=== PATIENT | male | born 2000 | race Two or more races ===

== ENCOUNTER 2024-01-01 15:20 | Emergency (ER) | payer SELFPAY ==
[~2024-01-01] VITALS: Ht 172.7 cm; Wt 68.0 kg
[2024-01-01 15:24] VITALS: O2SAT 97
[2024-01-01] MEDS ORDERED: LACTATED RINGERS 1,000 ML IV SCH (15:45)
[2024-01-01 16:05] LABS: CARBON DIOXIDE 28 mEq/L (21-32); CHLORIDE 104 mEq/L (98-107); POTASSIUM 3.8 mEq/L (3.5-5.1); SODIUM 142 mEq/L (136-145)
[2024-01-01 16:06] LABS: CALCIUM 9.2 mg/dL (8.7-10.4)
[2024-01-01 16:10] LABS: BASOPHILS % 0.5 % (0.0-2.0); EOSINOPHILS % 1.6 % (0.0-5.0); HEMATOCRIT. 40.9 % (42.0-52.0); HEMOGLOBIN. 13.9 g/dL (14.0-18.0); LYMPHOCYTES % 30.4 % (20.0-50.0); MEAN CORPUSCULAR HEMOGLOBIN 28.4 pg (28.0-32.0); MEAN CORPUSCULAR HGB CONC 33.9 g/dL (31.0-37.0); MEAN CORPUSCULAR VOLUME 83.9 fL (80.0-94.0); MEAN PLATELET VOLUME 7.8 fl (7.4-10.4); NEUTROPHILS % 58.5 % (40.0-76.0); PLATELET 229 x1000/uL (130-400); RED BLOOD CELL COUNT 4.87 mill/uL (4.7-6.1); RED CELL DISTRIBUTION WIDTH 14.4 % (11.6-14.6); WHITE BLOOD COUNT 5.3 x1000/uL (4.5-11.0)
[2024-01-01 16:11] LABS: GLUCOSE 98 mg/dL (70-105); UREA NITROGEN BLOOD 9 mg/dL (9-23)
[2024-01-01 16:12] LABS: ALANINE AMINOTRANSFERASE 12 IU/L (10-49); ALBUMIN 4.2 g/dL (3.2-4.8); ASPARTATE AMINOTRANSFERASE 24 IU/L (<34); CREATINE KINASE 253 IU/L (46-171)
[2024-01-01 16:13] LABS: BILIRUBIN TOTAL 1.7 mg/dL (0.1-1.0); PROTEIN TOTAL 6.3 g/dL (6.0-8.3)
[2024-01-01] MEDS ORDERED: LORAZEPAM 2MG/ML INJ IV PRN (17:45)
[2024-01-01] MEDS ORDERED: TRAMADOL 50MG TABLET PO PRN (17:45)
[2024-01-01] MEDS ORDERED: ONDANSETRON HCL 4MG/2ML INJ IV PRN (17:45)
[2024-01-01] MEDS ORDERED: DOCUSATE SODIUM 100MG CAPSULE PO PRN (17:45)
[2024-01-01] MEDS ORDERED: SODIUM CHLORIDE 0.45% 1,000 ML IV SCH (17:45)
[2024-01-01] MEDS ORDERED: ACETAMINOPHEN 325MG TABLET PO PRN (17:45)
[2024-01-01 18:16] VITALS: BP 116/73; PULSE 89; RESP 16; TEMP 98.3
== END 2024-01-01 18:18 | disposition left against medical advice (07) ==
LOC: ER 15:20 → EDBEDREQ 17:18 → EDBEDREQTM 17:18 → ER 18:18
DX: R55 Syncope and collapse (principal); R51.9 Headache, unspecified
CPT/HCPCS: 80053; 82550; 83605; 85025; 36415; 71045; 70450; 93005; 99285; Z7610